=== PATIENT | male | born 1960 | race Caucasian/White ===

== ENCOUNTER 2017-07-31 10:49 | Inpatient (IN) | payer BC ==
[~2017-07-31] VITALS: Ht 172.7 cm; Wt 76.8 kg
[2017-07-31] VITALS (576 sets, daily range): BP systolic 104–112; BP diastolic 78–92; PULSE 65–78; TEMP 97.8–98.3; O2SAT 75–100
[2017-07-31 13:19] LABS: HEMATOCRIT 25.5 % (42.0-52.0); HEMOGLOBIN 8.2 g/dl (13.5-18.0)
[2017-07-31 18:41] LABS: HEMATOCRIT 23.8 % (42.0-52.0)
[2017-08-01] VITALS (396 sets, daily range): BP systolic 87–134; BP diastolic 57–92; PULSE 56–89; TEMP 97.1–98.7; O2SAT 90–100
[2017-08-01 00:27] LABS: HEMATOCRIT 25.5 % (42.0-52.0); HEMOGLOBIN 8.2 g/dl (13.5-18.0)
[2017-08-01 05:55] LABS: HEMATOCRIT 26.8 % (42.0-52.0); HEMOGLOBIN 8.5 g/dl (13.5-18.0)
[2017-08-01 06:05] LABS: CALCIUM 8.4 mg/dL (8.4-10.2); CREATININE, serum 0.89 mg/dL (0.66-1.25); POTASSIUM 3.9 mmol/L (3.4-5.0)
[2017-08-01 15:57] LABS: HEMATOCRIT 26.8 % (42.0-52.0); HEMOGLOBIN 8.8 g/dl (13.5-18.0)
[2017-08-02 00:15] LABS: HEMATOCRIT 24.2 % (42.0-52.0); HEMOGLOBIN 7.8 g/dl (13.5-18.0)
[2017-08-02 02:36] VITALS: BP 93/61; PULSE 67; TEMP 98.6
[2017-08-02 05:53] VITALS: BP 92/73; PULSE 75; TEMP 98.3
[2017-08-02 08:14] LABS: CALCIUM 8.1 mg/dL (8.4-10.2); CREATININE, serum 0.87 mg/dL (0.66-1.25); POTASSIUM 3.6 mmol/L (3.4-5.0)
[2017-08-02 08:21] LABS: HEMATOCRIT 25.9 % (42.0-52.0); HEMOGLOBIN 8.3 g/dl (13.5-18.0)
[2017-08-02] MEDS ORDERED: FERROUS SU325 MG/TAB PO (08:30)
[2017-08-02] MEDS ORDERED: VITAMINC500CH PO (08:31)
[2017-08-02 09:19] VITALS: BP 107/69; PULSE 84; TEMP 97.7
== END 2017-08-02 10:45 | disposition home or self-care (01) | DRG 378 ==
LOC: IMCU 10:49 → ICU 12:10 → SURG 08-01 13:15
PROVIDERS: Family Medicine; Internal Medicine Gastroenterology
PROC: 0DJ08ZZ Inspection of Upper Intestinal Tract, Via Natural or Artificial Opening Endoscopic (ICD-10-PCS; principal; 2017-07-31 16:00)
PROC: 0DJD8ZZ Inspection of Lower Intestinal Tract, Via Natural or Artificial Opening Endoscopic (ICD-10-PCS; 2017-07-31 16:00)
DX: K92.2 Gastrointestinal hemorrhage, unspecified (principal); D62 Acute posthemorrhagic anemia; F17.290 Nicotine dependence, other tobacco product, uncomplicated; G44.209 Tension-type headache, unspecified, not intractable; K57.10 Diverticulosis of small intestine without perforation or abscess without bleeding; Z23 Encounter for immunization
CPT/HCPCS: 99223-AI; 99233-AI; 99238; C9113; J2704; J7030

== ENCOUNTER 2024-02-01 07:00 | Day surgery (SDC) | payer BC ==
[~2024-02-01] VITALS: Ht 203.2 cm; Wt 75.0 kg
[~2024-02-01 07:00] MED LIST: FERROUS SU325 MG/TAB PO; LR 1,000 ML IV SCH; Ondansetron 4 MG/2 ML VIAL IV PRN; VITAMINC500CH PO
[2024-02-01 08:30] VITALS: BP 145/96; PULSE 59; TEMP 97.8
[2024-02-01] MEDS ORDERED: fentaNYL 50 MCG/ML 2 ML VIAL ONE (08:30)
[2024-02-01] MEDS ORDERED: Lidocaine PF 2% (20 MG/ML) 5 ML VIAL ONE (08:30)
[2024-02-01] MEDS ORDERED: DIGESTIVE ADVA1 EAC1 PO (08:36)
[2024-02-01] MEDS ORDERED: PROBIOTIC-MAJOR (08:38)
[2024-02-01] MEDS ORDERED: CURCUMIN95% PO (08:39)
[2024-02-01] MEDS ORDERED: OMEGA-31 SGL PO (08:40)
[2024-02-01] MEDS ORDERED: METAMUCIL FIBE PO (08:43)
[2024-02-01] MEDS ORDERED: ZYRTEC 10MG10 MG PO (08:45)
[2024-02-01] MEDS ORDERED: MASON NATURAL2000 IU PO (08:45)
[2024-02-01] MEDS ORDERED: ZOCOR 10MG10 MG PO (08:46)
[2024-02-01 09:20] VITALS: BP 104/77; PULSE 60; TEMP 97.8
[2024-02-01 09:35] VITALS: BP 108/78; PULSE 55
--- NOTE | 2024-02-01 17:01 | NUR ---
0920: PT TO BAY 8 FROM ENDO SUITE. AMBULATED FROM CART TO RECLINER X2 ASSIST. REPORT RECEIVED FROM ENDO NURSE. PT ALERT AND ORIENTED. DENIES PAIN OR NAUSEA. REQUESTING MUFFIN AND JUICE. RESTING IN RECLINER. CALL LIGHT IN REACH. , DARIO, AT BEDSIDE. 0923: DR. GRIFFITHS IN TO SPEAK WITH PT. 0935: PT ALERT AND ORIENTED. TOLERATING MUFFIN AND JUICE. DENIES PAIN AND NAUSEA. RESTING IN RECLINER. DISCHARGE EDUCATION DONE AT THIS TIME. PT STATED UNDERSTANDING OF DC INSTRUCTIONS. DC PAPERWORK GIVEN TO PT. IV DC'D AT THIS TIME. PT DENIES ASSISTANCE WITH DRESSING. 0945: PT AMBULATED INDEPENDENTLY FROM RECLINER TO WHEELCHAIR. PT OFF UNIT AT THIS TIME. PT DC TO HOME WITH PER PERSONAL VEHICLE.
== END 2024-02-01 09:45 | disposition home or self-care (01) ==
LOC: SDCO 07:00
DX: Z12.11 Encounter for screening for malignant neoplasm of colon (principal); K63.5 Polyp of colon; K57.30 Diverticulosis of large intestine without perforation or abscess without bleeding
CPT/HCPCS: J2704; J3010; J7120